=== PATIENT | male | born 1960 | race Caucasian/White ===

== ENCOUNTER 2016-08-12 10:50 | Emergency (ER) | payer MEDICAID ==
[~2016-08-12] VITALS: Ht 180.3 cm; Wt 95.5 kg
[~2016-08-12 10:50] MED LIST: ASPIRIN 32325 MG/TA1 PO; BACTRIM DS 8001 TAB PO; CIPRO 500MG TA500 MG PO; GLUCOPHAGE XR500 M1 PO; GLUCOPHAGE500 MG/TAB PO; KLOR-CON 1010 MEQ PO; KLOR-CON M1010 MEQ PO; LASIX 20MG TABL20 MG PO; LASIX 40MG TABL40 MG PO; NITROSTAT0.3 MG SL; NORCO 325 MG-51 TAB PO; NORCO 325 MG-7.1 TAB PO; REGLAN 10MG10 MG/TAB PO; STOOL SOFTENER100 M2 PO
[2016-08-12 10:52] VITALS: TEMP 97.4
[2016-08-12] MEDS ORDERED: JANUVIA50 MG PO (11:21)
[2016-08-12 11:43] LABS: BASO # 0.1 (0.0-0.2); BASO % 0.9 % (0.0-2.0); EOS # 0.3 (0.0-0.7); EOS % 3.3 % (0-4.0); GRAN # 7.3 (1.4-6.5); GRAN % 77.1 % (42.2-75.2); HEMATOCRIT 37.4 % (42.0-52.0); LYMPH % 10.4 % (20.0-51.0); MEAN CELL VOLUME 98 fl (80.0-100.0); MEAN CORPUSCULAR HEMOGLOBIN 31 pg (27.0-31.0); MEAN CORPUSCULAR HGB CONC 31 g/dl (33.0-37.0); MEAN PLATELET VOLUME 12.2 fl (7.4-10.4); MONO # 0.8 (0.1-0.6); MONO % 7.9 % (1.7-9.3); PLATELET COUNT 177 K/mm3 (130-400); RED BLOOD COUNT 3.81 M/mm3 (4.20-5.60); REDCELL DISTRIBUTION WIDTH-CV 18.7 % (11.5-14.5); WHITE BLOOD COUNT 9.5 K/mm3 (4.8-10.8)
[2016-08-12 11:46] LABS: HEMOGLOBIN 11.7 g/dl (13.5-18.0)
[2016-08-12 11:52] LABS: ADJUSTED CALCIUM 9.2 mg/dL (8.4-10.2); ALBUMIN 4.1 gm/dL (3.5-5.0); BILIRUBIN,TOTAL 2.1 mg/dL (0.0-1.0); CALCIUM 9.3 mg/dL (8.4-10.2); CREATININE, serum 1.49 mg/dL (0.66-1.25); POTASSIUM 3.6 mmol/L (3.4-5.0); TOTAL PROTEIN 7.8 gm/dL (6.4-8.2)
[2016-08-12 11:54] LABS: INR 1.3 (0.8-3.0); PROTHROMBIN TIME 14.7 SECONDS (9.7-12.8)
[2016-08-12 11:57] LABS: PARTIAL THROMBOPLASTIN TIME 34.4 SECONDS (26.0-37.0)
[2016-08-12 12:04] LABS: TROPONIN-I 0.033 ng/mL (0.000-0.034)
[2016-08-12] MEDS ORDERED: LIPITOR20 MG PO (13:36)
[2016-08-12] MEDS ORDERED: PLAVIX 75MG TAB75 MG PO (13:36)
[2016-08-12] MEDS ORDERED: ZAROXOLYN 2.52.5 MG PO (13:37)
[2016-08-12] MEDS ORDERED: COLACE 100100 MG/CAP PO (13:37)
[2016-08-12] MEDS ORDERED: TOPROL XL 25MG25 MG PO (13:37)
[2016-08-12] MEDS ORDERED: PRILOSEC 20MG20 MG PO (13:38)
[2016-08-12] MEDS ORDERED: DEMADEX 20MG20 M1 PO (13:38)
[2016-08-12 13:59] VITALS: BP 113/71; PULSE 84
== END 2016-08-12 14:18 | disposition short-term general hospital (02) ==
LOC: COL.ER 10:50
PROVIDERS: Emergency Medicine
DX: R07.9 Chest pain, unspecified (principal); I13.0 Hypertensive heart and chronic kidney disease with heart failure and stage 1 through stage 4 chronic kidney disease, or unspecified chronic kidney disease; I50.9 Heart failure, unspecified; E11.22 Type 2 diabetes mellitus with diabetic chronic kidney disease; N18.3 Chronic kidney disease, stage 3 (moderate); Z95.810 Presence of automatic (implantable) cardiac defibrillator; Z89.511 Acquired absence of right leg below knee; Z45.018 Encounter for adjustment and management of other part of cardiac pacemaker; Z79.84 Long term (current) use of oral hypoglycemic drugs

== ENCOUNTER 2017-05-02 02:24 | Emergency (ER) | payer MEDICAID ==
[~2017-05-02] VITALS: Ht 180.3 cm; Wt 90.9 kg
[~2017-05-02 02:24] MED LIST changes: +COLACE 100100 MG/CAP PO; +DEMADEX 20MG20 M1 PO; +JANUVIA50 MG PO; +LIPITOR20 MG PO; +PLAVIX 75MG TAB75 MG PO; +PRILOSEC 20MG20 MG PO; +TOPROL XL 25MG25 MG PO; +ZAROXOLYN 2.52.5 MG PO
[2017-05-02 02:31] VITALS: TEMP 97.4
[2017-05-02 03:42] LABS: BASO % 0.4 % (0.0-2.0); EOS % 0.3 % (0-4.0); GRAN # 8.5 (1.4-6.5); GRAN % 83.2 % (42.2-75.2); HEMOGLOBIN 13.4 g/dl (13.5-18.0); LYMPH # 0.8 (1.2-3.4); LYMPH % 7.9 % (20.0-51.0); MEAN CELL VOLUME 92 fl (80.0-100.0); MEAN CORPUSCULAR HEMOGLOBIN 29 pg (27.0-31.0); MEAN CORPUSCULAR HGB CONC 32 g/dl (33.0-37.0); MEAN PLATELET VOLUME 13.6 fl (7.4-10.4); MONO # 0.8 (0.1-0.6); MONO % 7.7 % (1.7-9.3); PLATELET COUNT 124 K/mm3 (130-400); RED BLOOD COUNT 4.58 M/mm3 (4.20-5.60); WHITE BLOOD COUNT 10.2 K/mm3 (4.8-10.8)
[2017-05-02 03:53] LABS: ADJUSTED CALCIUM 9.5 mg/dL (8.4-10.2); ALBUMIN 4.2 gm/dL (3.5-5.0); BILIRUBIN,TOTAL 4.3 mg/dL (0.0-1.0); CALCIUM 9.7 mg/dL (8.4-10.2); CREATININE, serum 2.09 mg/dL (0.66-1.25); POTASSIUM 3.7 mmol/L (3.4-5.0); TOTAL PROTEIN 7.4 gm/dL (6.4-8.2)
[2017-05-02 04:04] LABS: TROPONIN-I 0.034 ng/mL (0.000-0.034)
[2017-05-02 04:49] LABS: COLLECTION METHOD CLEAN CATCH
[2017-05-02 05:02] LABS: HYALINE CAST >12 /lpf; MUCOUS Present /lpf; PH 5 (5-8); SQUAMOUS EPITHELIAL None Seen /hpf; URINE APPEARANCE Clear; URINE BACTERIA None Seen /hpf; URINE BILIRUBIN Negative (NEGATIVE); URINE BLOOD Negative (NEGATIVE); URINE COLOR Yellow; URINE GLUCOSE Negative (NEGATIVE); URINE KETONE Negative (NEGATIVE); URINE LEUKOCYTE ESTERASE Negative (NEGATIVE); URINE PROTEIN(semi-quant) Negative (NEGATIVE); URINE RBC 0-2 /hpf; URINE UROBILINOGEN Negative (NEGATIVE); URINE WBC 0-2 /hpf
[2017-05-02] MEDS ORDERED: ZOFRAN 4MG T4 MG/TAB PO (05:41)
[2017-05-02] MEDS ORDERED: ASPI325T6 PO (06:08)
[2017-05-02] MEDS ORDERED: LEVEMIR FLEX100 U/ML SQ (06:09)
[2017-05-02 09:01] VITALS: BP 102/70; PULSE 77
== END 2017-05-02 09:20 | disposition home or self-care (01) ==
LOC: COL.ER 02:24
PROVIDERS: Emergency Medicine
DX: E11.43 Type 2 diabetes mellitus with diabetic autonomic (poly)neuropathy (principal); K31.84 Gastroparesis; Z79.82 Long term (current) use of aspirin; Z79.4 Long term (current) use of insulin
CPT/HCPCS: J1200; J2060; J2405; J2550; J7030

== ENCOUNTER 2017-05-04 10:15 | Inpatient (IN) | payer MEDICAID ==
[~2017-05-04] VITALS: Ht 180.3 cm; Wt 92.5 kg
[~2017-05-04 10:15] MED LIST changes: +ASPI325T6 PO; -DEMADEX 20MG20 M1 PO; +DEMADEX100 MG PO; +LEVEMIR FLEX100 U/ML SQ; +ZOFRAN 4MG T4 MG/TAB PO
[2017-05-04 11:22] LABS: BASO # 0.1 (0.0-0.2); BASO % 0.6 % (0.0-2.0); EOS # 0.1 (0.0-0.7); EOS % 1.4 % (0-4.0); GRAN # 7.1 (1.4-6.5); GRAN % 79.7 % (42.2-75.2); HEMATOCRIT 41.5 % (42.0-52.0); HEMOGLOBIN 12.9 g/dl (13.5-18.0); LYMPH # 0.8 (1.2-3.4); MEAN CELL VOLUME 94 fl (80.0-100.0); MEAN CORPUSCULAR HEMOGLOBIN 29 pg (27.0-31.0); MEAN CORPUSCULAR HGB CONC 31 g/dl (33.0-37.0); MEAN PLATELET VOLUME 13.1 fl (7.4-10.4); MONO # 0.8 (0.1-0.6); PLATELET COUNT 131 K/mm3 (130-400); RED BLOOD COUNT 4.44 M/mm3 (4.20-5.60); WHITE BLOOD COUNT 8.9 K/mm3 (4.8-10.8)
[2017-05-04 11:32] LABS: ADJUSTED CALCIUM 9.7 mg/dL (8.4-10.2); ALBUMIN 3.7 gm/dL (3.5-5.0); CALCIUM 9.5 mg/dL (8.4-10.2); CREATININE, serum 1.97 mg/dL (0.66-1.25); POTASSIUM 4.4 mmol/L (3.4-5.0); TOTAL PROTEIN 6.8 gm/dL (6.4-8.2)
[2017-05-04 14:24] LABS: BILIRUBIN,DIRECT 1.9 mg/dL (0.0-0.4)
[2017-05-04 15:18] VITALS: BP 109/71; PULSE 78; TEMP 97.5
[2017-05-04 20:47] VITALS: BP 101/70; PULSE 73; TEMP 97
[2017-05-05 03:13] VITALS: BP 106/58; PULSE 74; TEMP 97.7
[2017-05-05 09:37] VITALS: BP 104/67; PULSE 82; TEMP 98.9
[2017-05-05 10:21] LABS: COLLECTION METHOD CLEAN CATCH
[2017-05-05 10:32] LABS: BASO # 0.1 (0.0-0.2); BASO % 0.8 % (0.0-2.0); EOS # 0.2 (0.0-0.7); EOS % 2.2 % (0-4.0); GRAN # 7.2 (1.4-6.5); GRAN % 78.1 % (42.2-75.2); HEMATOCRIT 42.5 % (42.0-52.0); HEMOGLOBIN 13.1 g/dl (13.5-18.0); LYMPH # 0.9 (1.2-3.4); LYMPH % 9.3 % (20.0-51.0); MEAN CELL VOLUME 93 fl (80.0-100.0); MEAN CORPUSCULAR HEMOGLOBIN 29 pg (27.0-31.0); MEAN CORPUSCULAR HGB CONC 31 g/dl (33.0-37.0); MONO # 0.9 (0.1-0.6); MONO % 9.2 % (1.7-9.3); PLATELET COUNT 133 K/mm3 (130-400); RED BLOOD COUNT 4.56 M/mm3 (4.20-5.60); WHITE BLOOD COUNT 9.2 K/mm3 (4.8-10.8)
[2017-05-05 10:40] LABS: ADJUSTED CALCIUM 9.4 mg/dL (8.4-10.2); ALBUMIN 3.8 gm/dL (3.5-5.0); BILIRUBIN,TOTAL 4.1 mg/dL (0.0-1.0); CALCIUM 9.2 mg/dL (8.4-10.2); CREATININE, serum 1.85 mg/dL (0.66-1.25); POTASSIUM 4.3 mmol/L (3.4-5.0); TOTAL PROTEIN 6.8 gm/dL (6.4-8.2)
[2017-05-05 10:51] LABS: MUCOUS Present /lpf; PH 5 (5-8); SQUAMOUS EPITHELIAL 0-2 /hpf; URINE APPEARANCE Clear; URINE BACTERIA None Seen /hpf; URINE BILIRUBIN Negative (NEGATIVE); URINE BLOOD Negative (NEGATIVE); URINE COLOR Yellow; URINE GLUCOSE Negative (NEGATIVE); URINE KETONE Negative (NEGATIVE); URINE LEUKOCYTE ESTERASE Negative (NEGATIVE); URINE PROTEIN(semi-quant) Negative (NEGATIVE); URINE RBC 0-2 /hpf; URINE WBC 0-2 /hpf
[2017-05-05 11:21] VITALS: BP 98/53; PULSE 80; TEMP 97.6
[2017-05-05 14:39] LABS: AMPHETAMINE URINE NEGATIVE; BARBITURATES URINE NEGATIVE; BENZODIAZEPINES URINE POSITIVE; BUPRENORPHINE URINE NEGATIVE; METHADONE URINE NEGATIVE; OPIATES URINE POSITIVE; OXYCODONE URINE NEGATIVE; PHENCYCLIDINE URINE NEGATIVE; PROPOXYPHENE URINE NEGATIVE; THC CANNABINOIDS URINE NEGATIVE; TRICYCLIC ANTIDEPRESS URINE NEGATIVE
[2017-05-05 16:29] VITALS: BP 101/64; PULSE 98; TEMP 98.7
[2017-05-05 20:00] VITALS: BP 107/66; PULSE 85; TEMP 97.7
[2017-05-05 23:40] VITALS: BP 109/70; PULSE 78; TEMP 97.4
[2017-05-06 03:32] VITALS: BP 100/68; PULSE 76; TEMP 98.2
[2017-05-06 06:48] LABS: BASO # 0.1 (0.0-0.2); EOS # 0.2 (0.0-0.7); EOS % 2.8 % (0-4.0); GRAN # 5.2 (1.4-6.5); GRAN % 73.1 % (42.2-75.2); HEMOGLOBIN 12.5 g/dl (13.5-18.0); LYMPH # 0.9 (1.2-3.4); LYMPH % 12.3 % (20.0-51.0); MEAN CELL VOLUME 93 fl (80.0-100.0); MEAN CORPUSCULAR HEMOGLOBIN 29 pg (27.0-31.0); MEAN CORPUSCULAR HGB CONC 31 g/dl (33.0-37.0); MEAN PLATELET VOLUME 13.1 fl (7.4-10.4); MONO # 0.7 (0.1-0.6); MONO % 10.4 % (1.7-9.3); PLATELET COUNT 114 K/mm3 (130-400); RED BLOOD COUNT 4.32 M/mm3 (4.20-5.60); WHITE BLOOD COUNT 7.1 K/mm3 (4.8-10.8)
[2017-05-06 06:57] LABS: ADJUSTED CALCIUM 9.5 mg/dL (8.4-10.2); ALBUMIN 3.5 gm/dL (3.5-5.0); BILIRUBIN,TOTAL 4.1 mg/dL (0.0-1.0); CALCIUM 9.1 mg/dL (8.4-10.2); CREATININE, serum 1.9 mg/dL (0.66-1.25); POTASSIUM 4.1 mmol/L (3.4-5.0); TOTAL PROTEIN 6.4 gm/dL (6.4-8.2)
[2017-05-06 08:00] VITALS: BP 101/72; PULSE 78; TEMP 98.3
[2017-05-06 11:56] VITALS: BP 101/59; PULSE 73
[2017-05-06 15:19] VITALS: BP 99/71; PULSE 77; TEMP 97.4
[2017-05-06 20:01] VITALS: BP 101/69; PULSE 78; TEMP 97.7
[2017-05-06 22:48] VITALS: BP 96/65; PULSE 92; TEMP 97.6
[2017-05-07] VITALS (7 sets, daily range): BP systolic 89–106; BP diastolic 49–76; PULSE 57–84; TEMP 97.5–98.8
[2017-05-07 06:46] LABS: BASO % 0.5 % (0.0-2.0); EOS # 0.2 (0.0-0.7); EOS % 3.4 % (0-4.0); GRAN % 76.1 % (42.2-75.2); HEMATOCRIT 38.4 % (42.0-52.0); LYMPH # 0.7 (1.2-3.4); MEAN CELL VOLUME 92 fl (80.0-100.0); MEAN CORPUSCULAR HEMOGLOBIN 29 pg (27.0-31.0); MEAN CORPUSCULAR HGB CONC 31 g/dl (33.0-37.0); MEAN PLATELET VOLUME 12.3 fl (7.4-10.4); MONO # 0.6 (0.1-0.6); MONO % 8.8 % (1.7-9.3); PLATELET COUNT 104 K/mm3 (130-400); RED BLOOD COUNT 4.17 M/mm3 (4.20-5.60); WHITE BLOOD COUNT 6.6 K/mm3 (4.8-10.8)
[2017-05-07 07:06] LABS: ADJUSTED CALCIUM 9.7 mg/dL (8.4-10.2); ALBUMIN 3.3 gm/dL (3.5-5.0); BILIRUBIN,TOTAL 3.7 mg/dL (0.0-1.0); CALCIUM 9.1 mg/dL (8.4-10.2); CREATININE, serum 1.99 mg/dL (0.66-1.25); MAGNESIUM 2.3 mg/dL (1.6-2.3); PHOSPHOROUS 3.6 mg/dL (2.5-4.5); TOTAL PROTEIN 6.3 gm/dL (6.4-8.2)
[2017-05-08 04:39] VITALS: BP 91/56; PULSE 37; PULSE 72; TEMP 97.7
[2017-05-08 07:39] VITALS: BP 90/51; PULSE 82; TEMP 98
[2017-05-08 09:16] LABS: BASO # 0.1 (0.0-0.2); EOS # 0.3 (0.0-0.7); EOS % 3.4 % (0-4.0); GRAN % 68.9 % (42.2-75.2); HEMATOCRIT 39.5 % (42.0-52.0); HEMOGLOBIN 12.5 g/dl (13.5-18.0); LYMPH # 1.1 (1.2-3.4); MEAN CELL VOLUME 92 fl (80.0-100.0); MEAN CORPUSCULAR HEMOGLOBIN 29 pg (27.0-31.0); MEAN CORPUSCULAR HGB CONC 32 g/dl (33.0-37.0); MEAN PLATELET VOLUME 13.4 fl (7.4-10.4); MONO # 0.8 (0.1-0.6); MONO % 11.4 % (1.7-9.3); PLATELET COUNT 114 K/mm3 (130-400); RED BLOOD COUNT 4.31 M/mm3 (4.20-5.60); WHITE BLOOD COUNT 7.3 K/mm3 (4.8-10.8)
[2017-05-08 09:23] LABS: CALCIUM 9.1 mg/dL (8.4-10.2); CREATININE, serum 2.43 mg/dL (0.66-1.25); MAGNESIUM 2.4 mg/dL (1.6-2.3); PHOSPHOROUS 3.7 mg/dL (2.5-4.5); POTASSIUM 4.2 mmol/L (3.4-5.0)
[2017-05-08 11:47] VITALS: BP 103/50; PULSE 45; TEMP 97.7
[2017-05-08 16:26] VITALS: BP 81/48; PULSE 52; TEMP 98.7
[2017-05-08 17:06] VITALS: BP 90/57; PULSE 75; TEMP 97.8
[2017-05-08 18:28] VITALS: BP 97/60; PULSE 72; TEMP 98.7
[2017-05-09 00:25] VITALS: BP 100/54; PULSE 74
[2017-05-09 08:21] VITALS: BP 95/67; PULSE 63; TEMP 97.8
[2017-05-09 12:09] VITALS: BP 94/57; PULSE 75; TEMP 98
[2017-05-09 15:50] LABS: BASO # 0.1 (0.0-0.2); BASO % 0.9 % (0.0-2.0); EOS # 0.2 (0.0-0.7); EOS % 2.5 % (0-4.0); GRAN # 6.1 (1.4-6.5); GRAN % 74.9 % (42.2-75.2); HEMATOCRIT 39.2 % (42.0-52.0); HEMOGLOBIN 12.4 g/dl (13.5-18.0); LYMPH % 11.7 % (20.0-51.0); MEAN CELL VOLUME 91 fl (80.0-100.0); MEAN CORPUSCULAR HEMOGLOBIN 29 pg (27.0-31.0); MEAN CORPUSCULAR HGB CONC 32 g/dl (33.0-37.0); MEAN PLATELET VOLUME 12.7 fl (7.4-10.4); MONO # 0.8 (0.1-0.6); MONO % 9.8 % (1.7-9.3); PLATELET COUNT 107 K/mm3 (130-400); RED BLOOD COUNT 4.29 M/mm3 (4.20-5.60); WHITE BLOOD COUNT 8.1 K/mm3 (4.8-10.8)
[2017-05-09 16:00] LABS: CALCIUM 8.7 mg/dL (8.4-10.2); CREATININE, serum 2.48 mg/dL (0.66-1.25); MAGNESIUM 2.2 mg/dL (1.6-2.3); POTASSIUM 4.1 mmol/L (3.4-5.0)
[2017-05-09 16:49] VITALS: BP 98/61; PULSE 75; TEMP 98
[2017-05-09 20:26] VITALS: BP 98/64; PULSE 73; TEMP 97.8
[2017-05-10 04:24] VITALS: BP 91/60; PULSE 73; TEMP 97.8
[2017-05-10 07:10] LABS: CALCIUM 8.9 mg/dL (8.4-10.2); CREATININE, serum 2.31 mg/dL (0.66-1.25); MAGNESIUM 2.2 mg/dL (1.6-2.3); POTASSIUM 3.8 mmol/L (3.4-5.0)
[2017-05-10 07:16] LABS: BASO # 0.1 (0.0-0.2); BASO % 0.6 % (0.0-2.0); EOS # 0.3 (0.0-0.7); EOS % 3.4 % (0-4.0); GRAN # 6.2 (1.4-6.5); GRAN % 74.6 % (42.2-75.2); HEMATOCRIT 37.4 % (42.0-52.0); LYMPH # 0.9 (1.2-3.4); MEAN CELL VOLUME 90 fl (80.0-100.0); MEAN CORPUSCULAR HEMOGLOBIN 29 pg (27.0-31.0); MEAN CORPUSCULAR HGB CONC 32 g/dl (33.0-37.0); MONO # 0.8 (0.1-0.6); MONO % 9.9 % (1.7-9.3); PLATELET COUNT 109 K/mm3 (130-400); RED BLOOD COUNT 4.18 M/mm3 (4.20-5.60); WHITE BLOOD COUNT 8.3 K/mm3 (4.8-10.8)
[2017-05-10 07:33] VITALS: BP 93/57; PULSE 107; TEMP 97.8
[2017-05-10 11:18] VITALS: BP 95/64; PULSE 65; TEMP 97.8
[2017-05-10 15:53] VITALS: BP 93/50; PULSE 75; TEMP 97.7
[2017-05-10 19:48] VITALS: BP 94/50; PULSE 54; TEMP 97.8
[2017-05-10 23:24] VITALS: BP 86/57; PULSE 68; TEMP 97.7
[2017-05-11 03:53] VITALS: BP 81/49; PULSE 70; TEMP 97
[2017-05-11 05:33] VITALS: BP 90/56
[2017-05-11 07:14] LABS: CALCIUM 8.9 mg/dL (8.4-10.2); CREATININE, serum 2.06 mg/dL (0.66-1.25); MAGNESIUM 2.1 mg/dL (1.6-2.3)
[2017-05-11 07:15] LABS: POTASSIUM 3.9 mmol/L (3.4-5.0)
[2017-05-11 07:27] VITALS: BP 93/53; PULSE 76; TEMP 98.2
[2017-05-11 11:41] VITALS: BP 95/54; PULSE 80; TEMP 97.4
[2017-05-11 16:10] VITALS: BP 91/54; PULSE 71; TEMP 97.4
[2017-05-11 20:30] VITALS: BP 94/60; PULSE 83; TEMP 98.3
[2017-05-12] VITALS (7 sets, daily range): BP systolic 87–95; BP diastolic 49–67; PULSE 71–81; TEMP 97.7–98.3
[2017-05-12 08:48] LABS: BASO # 0.1 (0.0-0.2); BASO % 0.7 % (0.0-2.0); EOS # 0.2 (0.0-0.7); GRAN # 5.8 (1.4-6.5); GRAN % 79.2 % (42.2-75.2); LYMPH # 0.6 (1.2-3.4); LYMPH % 7.7 % (20.0-51.0); MEAN CELL VOLUME 89 fl (80.0-100.0); MEAN CORPUSCULAR HGB CONC 32 g/dl (33.0-37.0); MEAN PLATELET VOLUME 13.2 fl (7.4-10.4); MONO # 0.7 (0.1-0.6); MONO % 9.1 % (1.7-9.3); PLATELET COUNT 109 K/mm3 (130-400); RED BLOOD COUNT 3.97 M/mm3 (4.20-5.60); WHITE BLOOD COUNT 7.4 K/mm3 (4.8-10.8)
[2017-05-12 08:49] LABS: HEMATOCRIT 35.4 % (42.0-52.0); HEMOGLOBIN 11.3 g/dl (13.5-18.0); MEAN CORPUSCULAR HEMOGLOBIN 28 pg (27.0-31.0)
[2017-05-12 09:05] LABS: ADJUSTED CALCIUM 9.3 mg/dL (8.4-10.2); ALBUMIN 3.5 gm/dL (3.5-5.0); BILIRUBIN,TOTAL 2.3 mg/dL (0.0-1.0); CALCIUM 8.9 mg/dL (8.4-10.2); CREATININE, serum 1.84 mg/dL (0.66-1.25); POTASSIUM 3.8 mmol/L (3.4-5.0); TOTAL PROTEIN 6.6 gm/dL (6.4-8.2)
[2017-05-13 03:43] VITALS: BP 93/66; PULSE 75; TEMP 98.2
[2017-05-13 06:19] LABS: BASO % 0.6 % (0.0-2.0); EOS # 0.2 (0.0-0.7); EOS % 2.6 % (0-4.0); GRAN # 5.3 (1.4-6.5); GRAN % 75.1 % (42.2-75.2); LYMPH # 0.8 (1.2-3.4); MEAN CELL VOLUME 89 fl (80.0-100.0); MEAN CORPUSCULAR HGB CONC 32 g/dl (33.0-37.0); MEAN PLATELET VOLUME 13.1 fl (7.4-10.4); MONO # 0.7 (0.1-0.6); MONO % 10.4 % (1.7-9.3); PLATELET COUNT 118 K/mm3 (130-400); RED BLOOD COUNT 4.06 M/mm3 (4.20-5.60)
[2017-05-13 06:34] LABS: CREATININE, serum 1.68 mg/dL (0.66-1.25)
[2017-05-13 06:35] LABS: CALCIUM 9.3 mg/dL (8.4-10.2); POTASSIUM 3.7 mmol/L (3.4-5.0)
[2017-05-13 06:40] LABS: HEMATOCRIT 36.2 % (42.0-52.0); HEMOGLOBIN 11.5 g/dl (13.5-18.0); MEAN CORPUSCULAR HEMOGLOBIN 28 pg (27.0-31.0)
[2017-05-13 08:23] VITALS: BP 98/52; PULSE 77; TEMP 97.7
[2017-05-13 12:21] VITALS: BP 94/53; PULSE 41; TEMP 98
[2017-05-13] MEDS ORDERED: REGLAN 5MG T5 MG/TAB PO (15:06)
== END 2017-05-13 16:20 | disposition home or self-care (01) | DRG 74 ==
LOC: COL.ER 10:15 → MEDICAL 14:15
PROVIDERS: Emergency Medicine; Internal Medicine; Internal Medicine Gastroenterology; Nurse Practitioner Family; Physician Assistant
DX: E11.43 Type 2 diabetes mellitus with diabetic autonomic (poly)neuropathy (principal); I50.22 Chronic systolic (congestive) heart failure; B17.10 Acute hepatitis C without hepatic coma; R18.8 Other ascites; I13.0 Hypertensive heart and chronic kidney disease with heart failure and stage 1 through stage 4 chronic kidney disease, or unspecified chronic kidney disease; K31.84 Gastroparesis; E11.22 Type 2 diabetes mellitus with diabetic chronic kidney disease; N18.3 Chronic kidney disease, stage 3 (moderate); Z89.511 Acquired absence of right leg below knee; Z95.810 Presence of automatic (implantable) cardiac defibrillator; E11.51 Type 2 diabetes mellitus with diabetic peripheral angiopathy without gangrene; I25.5 Ischemic cardiomyopathy; I27.22 Pulmonary hypertension due to left heart disease; I08.0 Rheumatic disorders of both mitral and aortic valves; Z89.422 Acquired absence of other left toe(s); R04.0 Epistaxis
CPT/HCPCS: 87522; 99231-AI; 99232-AI; 99233-AI; G0378; G8978-GP; G8979-GP; G8987-GO; G8988-GO; J1644; J1815; J1940; J2060; J2405; J2765; J7030; J7040

== ENCOUNTER 2017-05-19 16:22 | Inpatient (IN) | payer MEDICAID ==
[2017-05-19] VITALS (93 sets, daily range): O2SAT 78–100
[~2017-05-19] VITALS: Ht 180.3 cm; Wt 93.0 kg
[~2017-05-19 16:22] MED LIST changes: +REGLAN 5MG T5 MG/TAB PO
[2017-05-19] MEDS ORDERED: LIPITOR 40MG TA40 MG PO (16:42)
[2017-05-19 16:44] LABS: HEMATOCRIT 39.9 % (42.0-52.0); HEMOGLOBIN 12.8 g/dl (13.5-18.0); MEAN CELL VOLUME 91 fl (80.0-100.0); MEAN CORPUSCULAR HEMOGLOBIN 29 pg (27.0-31.0); MEAN CORPUSCULAR HGB CONC 32 g/dl (33.0-37.0); PLATELET COUNT 124 K/mm3 (130-400); WHITE BLOOD COUNT 11.3 K/mm3 (4.8-10.8)
[2017-05-19 16:55] LABS: ADD PATHOLOGY DIFF REVIEW NO
[2017-05-19 17:12] LABS: ADJUSTED CALCIUM 9.3 mg/dL (8.4-10.2); ALBUMIN 4.1 gm/dL (3.5-5.0); BILIRUBIN,TOTAL 3.1 mg/dL (0.0-1.0); CALCIUM 9.4 mg/dL (8.4-10.2); CREATININE, serum 2.21 mg/dL (0.66-1.25); POTASSIUM 4.3 mmol/L (3.4-5.0); TOTAL PROTEIN 7.7 gm/dL (6.4-8.2)
[2017-05-19 17:16] LABS: BAND 4 % (0-10); EOSINOPHIL 1 % (0-4); LYMPHOCYTE 8 % (20.0-51.0); NEUTROPHILS 84 % (42.0-75.2); TOTAL CELLS COUNTED 100
[2017-05-19 17:17] LABS: ANISOCYTOSIS 2+; PLATELET ESTIMATE DECREASED (NORMAL)
[2017-05-19 17:24] LABS: COLLECTION METHOD CLEAN CATCH
[2017-05-19 17:30] LABS: PH 6 (5-8); SQUAMOUS EPITHELIAL 0-2 /hpf; URINE APPEARANCE Clear; URINE BACTERIA Rare /hpf; URINE BILIRUBIN Negative (NEGATIVE); URINE BLOOD Negative (NEGATIVE); URINE COLOR Yellow; URINE GLUCOSE Negative (NEGATIVE); URINE KETONE Negative (NEGATIVE); URINE LEUKOCYTE ESTERASE Negative (NEGATIVE); URINE PROTEIN(semi-quant) Negative (NEGATIVE); URINE RBC 0-2 /hpf; URINE UROBILINOGEN >=4.0 mg/dL (NEGATIVE); URINE WBC 0-2 /hpf
[2017-05-19 17:55] LABS: INR 1.4 (0.8-3.0); PROTHROMBIN TIME 16.3 SECONDS (9.7-12.8)
[2017-05-19 21:37] LABS: AMMONIA < 9 umol/L (11-35)
[2017-05-19 22:16] LABS: TROPONIN-I 0.048 ng/mL (0.000-0.034)
[2017-05-19 22:17] LABS: B-TYPE NATRIURETIC PEPTIDE 11700 pg/mL (0-125)
[2017-05-20] VITALS (643 sets, daily range): BP systolic 85–163; BP diastolic 54–78; PULSE 69–84; TEMP 97.3–98.6; O2SAT 62–100
[2017-05-20 05:42] LABS: BASO % 0.3 % (0.0-2.0); EOS # 0.1 (0.0-0.7); GRAN # 10.3 (1.4-6.5); GRAN % 86.2 % (42.2-75.2); HEMATOCRIT 37.1 % (42.0-52.0); LYMPH # 0.8 (1.2-3.4); LYMPH % 6.4 % (20.0-51.0); MEAN CELL VOLUME 91 fl (80.0-100.0); MEAN CORPUSCULAR HEMOGLOBIN 28 pg (27.0-31.0); MEAN CORPUSCULAR HGB CONC 31 g/dl (33.0-37.0); MEAN PLATELET VOLUME 13.4 fl (7.4-10.4); MONO # 0.7 (0.1-0.6); MONO % 5.9 % (1.7-9.3); PLATELET COUNT 112 K/mm3 (130-400); RED BLOOD COUNT 4.08 M/mm3 (4.20-5.60)
[2017-05-20 05:44] LABS: HEMOGLOBIN 11.6 g/dl (13.5-18.0)
[2017-05-20 05:52] LABS: ALBUMIN 3.7 gm/dL (3.5-5.0); BILIRUBIN,TOTAL 3.4 mg/dL (0.0-1.0); CALCIUM 8.8 mg/dL (8.4-10.2); CREATININE, serum 1.93 mg/dL (0.66-1.25); POTASSIUM 3.7 mmol/L (3.4-5.0)
[2017-05-20 06:04] LABS: TROPONIN-I 0.054 ng/mL (0.000-0.034)
[2017-05-20 13:59] LABS: PERITONEAL -POLYMORPHONUCLEAR 28.2 % (0-25); PERITONEAL FLUID RBC 13000 /mm3 (0-0)
[2017-05-21] VITALS (8 sets, daily range): BP systolic 86–154; BP diastolic 45–88; PULSE 36–88; TEMP 97.4–98.7
[2017-05-21 07:17] LABS: BASO # 0.1 (0.0-0.2); BASO % 0.6 % (0.0-2.0); EOS # 0.1 (0.0-0.7); EOS % 0.8 % (0-4.0); GRAN # 9.2 (1.4-6.5); GRAN % 83.9 % (42.2-75.2); LYMPH # 0.8 (1.2-3.4); LYMPH % 7.1 % (20.0-51.0); MEAN CELL VOLUME 90 fl (80.0-100.0); MEAN CORPUSCULAR HEMOGLOBIN 29 pg (27.0-31.0); MEAN CORPUSCULAR HGB CONC 32 g/dl (33.0-37.0); MEAN PLATELET VOLUME 13.8 fl (7.4-10.4); MONO # 0.8 (0.1-0.6); MONO % 7.3 % (1.7-9.3); PLATELET COUNT 126 K/mm3 (130-400); RED BLOOD COUNT 4.11 M/mm3 (4.20-5.60)
[2017-05-21 07:21] LABS: HEMOGLOBIN 11.8 g/dl (13.5-18.0)
[2017-05-21 07:31] LABS: ADJUSTED CALCIUM 9.1 mg/dL (8.4-10.2); ALBUMIN 3.3 gm/dL (3.5-5.0); CALCIUM 8.5 mg/dL (8.4-10.2); CREATININE, serum 1.83 mg/dL (0.66-1.25); POTASSIUM 3.5 mmol/L (3.4-5.0); TOTAL PROTEIN 6.6 gm/dL (6.4-8.2)
[2017-05-22 04:02] VITALS: BP 92/68; PULSE 66; TEMP 97.2
[2017-05-22 08:01] VITALS: BP 83/55; PULSE 69; TEMP 97.6
[2017-05-22 08:10] LABS: ADJUSTED CALCIUM 8.9 mg/dL (8.4-10.2); BILIRUBIN,TOTAL 2.5 mg/dL (0.0-1.0); CALCIUM 8.1 mg/dL (8.4-10.2); CREATININE, serum 1.76 mg/dL (0.66-1.25); MAGNESIUM 3.6 mg/dL (1.6-2.3); POTASSIUM 4.2 mmol/L (3.4-5.0)
[2017-05-22 11:50] VITALS: BP 81/61; PULSE 70; TEMP 98.6
[2017-05-22 16:00] VITALS: BP 86/63; PULSE 69; TEMP 98.2
[2017-05-22 20:07] VITALS: BP 88/62; PULSE 67; TEMP 97.4
[2017-05-23 00:59] VITALS: BP 84/60; PULSE 64; TEMP 98.7
[2017-05-23 04:30] VITALS: BP 94/64; PULSE 55; TEMP 97.9
[2017-05-23 07:06] LABS: BASO # 0.1 (0.0-0.2); BASO % 0.6 % (0.0-2.0); EOS # 0.2 (0.0-0.7); EOS % 2.4 % (0-4.0); GRAN # 7.5 (1.4-6.5); GRAN % 78.6 % (42.2-75.2); LYMPH # 0.9 (1.2-3.4); MEAN CELL VOLUME 90 fl (80.0-100.0); MEAN CORPUSCULAR HGB CONC 32 g/dl (33.0-37.0); MEAN PLATELET VOLUME 13.5 fl (7.4-10.4); MONO # 0.9 (0.1-0.6); MONO % 9.1 % (1.7-9.3); PLATELET COUNT 138 K/mm3 (130-400); RED BLOOD COUNT 4.06 M/mm3 (4.20-5.60); WHITE BLOOD COUNT 9.5 K/mm3 (4.8-10.8)
[2017-05-23 07:11] LABS: HEMATOCRIT 36.6 % (42.0-52.0); HEMOGLOBIN 11.7 g/dl (13.5-18.0); MEAN CORPUSCULAR HEMOGLOBIN 29 pg (27.0-31.0)
[2017-05-23 07:19] LABS: CREATININE, serum 1.77 mg/dL (0.66-1.25); MAGNESIUM 3.5 mg/dL (1.6-2.3)
[2017-05-23 08:23] VITALS: BP 99/65; PULSE 74; TEMP 98
[2017-05-23 11:35] VITALS: BP 100/72; PULSE 56; TEMP 98.4
[2017-05-23 15:59] VITALS: BP 119/51; PULSE 75; TEMP 97.9
[2017-05-23 19:58] VITALS: BP 94/60; PULSE 85; TEMP 97.3
[2017-05-24] VITALS (14 sets, daily range): BP systolic 80–100; BP diastolic 46–67; PULSE 38–83; TEMP 97.6–98.5
[2017-05-24 06:51] LABS: BASO # 0.1 (0.0-0.2); BASO % 0.6 % (0.0-2.0); EOS # 0.3 (0.0-0.7); GRAN # 6.7 (1.4-6.5); GRAN % 75.8 % (42.2-75.2); LYMPH % 11.1 % (20.0-51.0); MEAN CELL VOLUME 90 fl (80.0-100.0); MEAN CORPUSCULAR HGB CONC 32 g/dl (33.0-37.0); MEAN PLATELET VOLUME 12.5 fl (7.4-10.4); MONO # 0.8 (0.1-0.6); MONO % 9.2 % (1.7-9.3); PLATELET COUNT 134 K/mm3 (130-400); WHITE BLOOD COUNT 8.9 K/mm3 (4.8-10.8)
[2017-05-24 06:53] LABS: HEMATOCRIT 35.8 % (42.0-52.0); HEMOGLOBIN 11.6 g/dl (13.5-18.0); MEAN CORPUSCULAR HEMOGLOBIN 29 pg (27.0-31.0)
[2017-05-24 07:13] LABS: CALCIUM 8.1 mg/dL (8.4-10.2); CREATININE, serum 1.91 mg/dL (0.66-1.25); MAGNESIUM 3.4 mg/dL (1.6-2.3); POTASSIUM 3.8 mmol/L (3.4-5.0)
[2017-05-24 21:14] LABS: BASO # 0.1 (0.0-0.2); BASO % 0.7 % (0.0-2.0); EOS # 0.3 (0.0-0.7); EOS % 3.3 % (0-4.0); GRAN # 6.9 (1.4-6.5); GRAN % 75.6 % (42.2-75.2); HEMATOCRIT 36.4 % (42.0-52.0); HEMOGLOBIN 11.4 g/dl (13.5-18.0); LYMPH # 0.9 (1.2-3.4); MEAN CELL VOLUME 92 fl (80.0-100.0); MEAN CORPUSCULAR HEMOGLOBIN 29 pg (27.0-31.0); MEAN CORPUSCULAR HGB CONC 31 g/dl (33.0-37.0); MEAN PLATELET VOLUME 12.8 fl (7.4-10.4); MONO # 0.9 (0.1-0.6); PLATELET COUNT 128 K/mm3 (130-400); RED BLOOD COUNT 3.97 M/mm3 (4.20-5.60); WHITE BLOOD COUNT 9.1 K/mm3 (4.8-10.8)
[2017-05-24 21:27] LABS: CALCIUM 7.9 mg/dL (8.4-10.2); CREATININE, serum 1.95 mg/dL (0.66-1.25); POTASSIUM 3.7 mmol/L (3.4-5.0)
[2017-05-25 03:53] VITALS: BP 101/60; PULSE 40; TEMP 98.7
[2017-05-25 08:14] VITALS: BP 86/59; PULSE 40; TEMP 98.2
[2017-05-25 11:35] VITALS: BP 91/64; PULSE 37; TEMP 97.8
[2017-05-25 13:18] LABS: CALCIUM 7.7 mg/dL (8.4-10.2); CREATININE, serum 1.79 mg/dL (0.66-1.25); POTASSIUM 3.9 mmol/L (3.4-5.0)
[2017-05-25] MEDS ORDERED: MIRTAZAPINE7.5 MG PO (13:45)
[2017-05-25] MEDS ORDERED: LOPRESSOR 225 MG/TAB PO (13:45)
[2017-05-25] MEDS ORDERED: FLOMAX 0.40.4 MG/CAP PO (13:45)
[2017-05-25] MEDS ORDERED: MIRALAX238G PO (13:46)
[2017-05-25] MEDS ORDERED: ANUSOL-HC SUPPO25 MG RC (13:53)
[2017-05-25 16:47] VITALS: BP 87/62; PULSE 75; TEMP 97.9
[2017-05-25 20:50] VITALS: BP 88/53; PULSE 40; TEMP 97.3
[2017-05-26 00:45] VITALS: BP 91/54; PULSE 82; TEMP 98.3
[2017-05-26 05:58] VITALS: BP 94/62; PULSE 76; TEMP 97.8
[2017-05-26 06:54] LABS: CALCIUM 8.2 mg/dL (8.4-10.2); CREATININE, serum 1.85 mg/dL (0.66-1.25); POTASSIUM 3.9 mmol/L (3.4-5.0)
[2017-05-26] MEDS ORDERED: ROWASA ENEMA60 ML RC (07:32)
[2017-05-26 07:45] VITALS: BP 110/61; PULSE 38; PULSE 74; TEMP 98
[2017-05-26] MEDS ORDERED: DEMADEX 20MG20 M1 PO (09:11)
[2017-05-26 11:43] VITALS: BP 89/59; PULSE 52; TEMP 97.8
[2017-05-26] MEDS ORDERED: LACTULOSE10 GM/153 PO (12:04)
[2017-05-26 13:50] VITALS: BP 89/59; PULSE 52; TEMP 97.8
== END 2017-05-26 14:30 | DRG 315 ==
LOC: COL.ER 16:22 → ICU 18:54 → MEDICAL 18:54
PROVIDERS: Family Medicine; Internal Medicine; Internal Medicine Gastroenterology; Nurse Practitioner Family; Physician Assistant
PROC: 0W9G3ZX Drainage of Peritoneal Cavity, Percutaneous Approach, Diagnostic (ICD-10-PCS; principal; 2017-05-20)
PROC: 0DBP8ZX Excision of Rectum, Via Natural or Artificial Opening Endoscopic, Diagnostic (ICD-10-PCS; 2017-05-24)
PROC: 0DBN8ZX Excision of Sigmoid Colon, Via Natural or Artificial Opening Endoscopic, Diagnostic (ICD-10-PCS; 2017-05-24)
DX: I95.9 Hypotension, unspecified (principal); K92.1 Melena; I50.22 Chronic systolic (congestive) heart failure; R18.8 Other ascites; N17.9 Acute kidney failure, unspecified; N13.8 Other obstructive and reflux uropathy; E87.1 Hypo-osmolality and hyponatremia; I42.9 Cardiomyopathy, unspecified; K62.6 Ulcer of anus and rectum; N18.3 Chronic kidney disease, stage 3 (moderate); K64.0 First degree hemorrhoids; E11.22 Type 2 diabetes mellitus with diabetic chronic kidney disease; E11.43 Type 2 diabetes mellitus with diabetic autonomic (poly)neuropathy; K31.84 Gastroparesis; B18.2 Chronic viral hepatitis C; N40.1 Benign prostatic hyperplasia with lower urinary tract symptoms; I25.10 Atherosclerotic heart disease of native coronary artery without angina pectoris; E11.51 Type 2 diabetes mellitus with diabetic peripheral angiopathy without gangrene; Z95.810 Presence of automatic (implantable) cardiac defibrillator; Z89.511 Acquired absence of right leg below knee; Z89.422 Acquired absence of other left toe(s); Z79.4 Long term (current) use of insulin; F32.9 Major depressive disorder, single episode, unspecified
CPT/HCPCS: 99223-AI; 99232-AI; 99233-AI; 99239; C9113; J1644; J1815; J2250; J2405; J2543; J2704; J2765; J7030; J7050